=== PATIENT | female | born 1985 | race Caucasian/White ===

== ENCOUNTER 2019-02-17 07:01 | Emergency (ER) | payer BC ==
[2019-02-17] MEDS ORDERED: 0.9 % SODIUM CHLORIDE 1,000 ML BAG IV ONE (07:11)
--- NOTE | 2019-02-17 07:15 | Emergency Department Record ---
History of Present Illness - General Chief Complaint: Syncope Stated Complaint: PASSED OUT Time Seen by Provider: 02/17/19 07:10 Source: Patient Mode of Arrival: Ambulatory Limitations: No limitations - History of Present Illness Initial Comments: 33 yo female presents after passing out this morning in the bathroom. The patient woke up with a feeling of palpitations on an off. She has had some recent shoulder and neck pain. No chest pain. No back pain. No abdominal pain. No vomiting or diarrhea. She got hot and sweaty and laid down quickly in the bathroom and thinks she passed out on the floor without hurting herself. No seizure. She has passed out in the past with illnesses. No CAD or cardiac disease. No family history of SCD. No seizure history. Non smoker. She is not on any medications. She does not drink. No chronic diseases. As far as she is aware she is a very healthy individual. 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 MD Complaint: Loss of consciousness Onset/Timin -: Minutes(s) Prodromal Symptoms: None Duration of Episode: 5 -: Minutes(s) Injuries Sustained Associated with Event: None Current Symptoms: None History: Previous syncopal episode Context: Other - Silvia Coma Scale Eye Response: (4) Open spontaneously Motor Response: (6) Obeys commands Verbal Response: (5) Oriented [place] Total: 15 - Related Data Home Medications Medication Instructions Recorded Confirmed Last Taken No Home Med [NO HOME MEDS] 02/17/19 02/17/19 Unknown Allergies Allergy/AdvReac Type Severity Reaction Status Date / Time No Known Allergies Allergy Unverified 11/17/17 18:08 Travel Screening - Travel/Exposure Within Last 30 Days Have you traveled within the last 30 days?: No Review of Systems Constitutional: Denies: Chills, Fever, Malaise, Weakness Eyes: Denies: Eye discharge, Eye pain, Vision change ENT: Denies: Congestion, Throat pain Respiratory: Denies: Cough, Dyspnea, Hemoptysis, Stridor, Wheezes Cardiovascular: Reports: Palpitations, Syncope. Denies: Chest pain, Edema Endocrine: Denies: Fatigue, Polydipsia, Polyuria Gastrointestinal: Denies: Abdominal pain, Diarrhea, Nausea, Vomiting Genitourinary: Denies: Dysuria, Frequency, Urgency Musculoskeletal: Reports: Myalgia. Denies: Arthralgia, Back pain Skin: Denies: Bruising, Change in color, Rash Neurological: Denies: Headache, Numbness, Vertigo Psychiatric: Denies: Anxiety Hematological/Lymphatic: Denies: Easy bleeding, Easy bruising Past Medical History - SOCIAL HISTORY Smoking Status: Never smoker Alcohol Use: None Drug Use: None - RESPIRATORY Hx Respiratory Disorders: No - CARDIOVASCULAR Hx Cardio Disorders: No - NEURO Hx Neuro Disorders: No - GI Hx GI Disorders: No - Hx Genitourinary Disorders: No - ENDOCRINE Hx Endocrine Disorders: No - MUSCULOSKELETAL Hx Musculoskeletal Disorders: No - PSYCH Hx Psych Problems: No - HEMATOLOGY/ONCOLOGY Hx Hematology/Oncology Disorders: No Family Medical History Any Significant Family History?: No Physical Exam - General General Appearance: Alert, Oriented x3, Cooperative, No acute distress Limitations: No limitations - Head Head exam: Atraumatic, Normal inspection - Eye Eye exam: Normal appearance, PERRL. negative: Conjunctival injection, Scleral icterus - ENT ENT exam: Normal exam, Mucous membranes moist, Normal orophraynx Ear exam: Normal external inspection Nasal Exam: Normal inspection Mouth exam: Normal external inspection Teeth exam: Normal inspection Throat exam: Normal inspection - Neck Neck exam: Normal inspection, Full ROM. negative: Lymphadenopathy, Meningismus, Tenderness - Respiratory Respiratory exam: Normal lung sounds bilaterally. negative: Accessory muscle use, Chest wall tenderness, Prolonged expiratory, Respiratory distress, Rhonchi, Stridor, Wheezes - Cardiovascular Cardiovascular Exam: Regular rate, Normal rhythm, Normal heart sounds. negative: Diastolic murmur, Irregular rhythm, Systolic murmur, Tachycardia Peripheral Pulses: 2+: Radial (R), Radial (L) - GI/Abdominal GI/Abdominal exam: Soft. negative: Tenderness - Rectal Rectal exam: Deferred - exam: Deferred - Extremities Extremities exam: Normal inspection. negative: Calf tenderness, Joint swelling, Pedal edema - Back Back exam: Denies: CVA tenderness (R), CVA tenderness (L) - Neurological Neurological exam: Alert, Normal gait, Oriented X3. negative: Abnormal gait, Motor sensory deficit - Psychiatric Psychiatric exam: Normal affect, Normal mood. negative: Agitated, Anxious, Depressed - Skin Skin exam: Dry, Intact, Normal color, Warm. negative: Cyanosis, Diaphoretic, Erythema, Mottled Course Vital Signs 02/17/19 07:02 Pulse Rate [ 69 Pulse Ox Probe] Respiratory 20 Rate Blood Pressure 101/62 [Left Arm] Pulse Ox 100 - Reevaluation(s) Reevaluation #1: 02/17/19 07:12 EKG 07:04 Rate 68 Rhythm sinus Davidson normal Intervals normal ST Segments normal, no WPW, no Brugada Normal EKG 02/17/19 07:41 CBC is negative The HCG is negative 02/17/19 07:47 The CMP was reviewed BUN is 29 otherwise normal CMP The HCG is negative 02/17/19 08:42 We discussed the results of the tests and questions were answered. The patient did state she has significantly changed her diet recently and did express concerns that she could be dehydrated Given her palpitations and prior syncope she was referred for outpatient cardiology follow up The patient is doing well and is comfortable with DC. We discussed at length reasons to immediately return to the ED as well as close follow up. The patient will call the PCP for close follow up of this ED visit to review this visit and the tests performed Medical Decision Making - Lab Data Result diagrams: 02/17/19 07:05 02/17/19 07:05 Disposition Disposition: Discharge Clinical Impression: Syncope Qualifiers: Syncope type: unspecified Qualified Code(s): R55 - Syncope and collapse Disposition: Home, Self-Care Condition: (1) Good Instructions: Syncope (ED) Additional Instructions: Review this ER visit and the tests performed with your family doctor Call your doctor for the next available follow up appointment Return to the ER for a recheck immediately if worse, any new concerns or questions You have been referred to the [facility]. You will get a call to schedule an appointment. Referrals: Gustavo Starr M.D. [MEDICAL DOCTOR] - [facility] Special[facility] [Provider Group] Forms: Patient Portal Access Time of Disposition: 08:43 Quality - Quality Measures Quality Measures: N/A - Blood Pressure Screening Does Patient Have Any of the Following: No Blood Pressure Classification: Normal BP Reading Systolic Measurement: 101 Diastolic Measurement: 62 Screening for High Blood Pressure: < Normal BP, F/U Not Required > [G8783]
[2019-02-17 07:20] LABS: ABSOLUTE NEUTROPHIL COUNT 3.88; BASO % 0.2 % (0-6); EOS % 1.1 % (0-6); GRAN % 58.9 % (47-80); HEMATOCRIT 42.4 % (35.0-47.0); MEAN CORPUSCULAR HEMOGLOBIN 30.4 pg (27-33); MEAN PLATELET VOLUME 10.4 fl (7.4-10.4); MONO % 7.8 % (0-9); PLATELET COUNT 241 K/uL (130-400); RED BLOOD COUNT 4.61 M/uL (3.80-5.40); RED CELL DISTRIBUTION WIDTH 13.9 % (11.5-14.5); WHITE BLOOD COUNT W/O DIFF 6.6 K/uL (4.2-12.2)
[2019-02-17 07:39] LABS: BLOOD UREA NITROGEN 29 mg/dL (6-20); CREATININE 0.7 mg/dL (0.5-0.9); EST GLOMERULAR FILTRATION RATE > 60 mL/min; TOTAL PROTEIN 6.9 g/dL (6.6-8.7)
[2019-02-17 07:41] LABS: GLUCOSE,RANDOM 113 mg/dL (74-109)
[2019-02-17 07:44] LABS: ALB/GLOB RATIO 1.6 (1.1-1.8); ALBUMIN 4.2 g/dL (4.0-5.0); ALKALINE PHOSPHATASE 44 U/L (35-104); ALT/SGPT 11 U/L (<33); AST/SGOT 14 U/L (10.0-35.0)
== END 2019-02-17 09:22 | disposition home or self-care (01) ==
LOC: ER 07:01
DX: R55 Syncope and collapse (principal); R00.2 Palpitations; M54.2 Cervicalgia
CPT/HCPCS: 80053; 84703; 85025; 93005; 93010; 96360; 99284; J7030